=== PATIENT | male | born 1935 | race Caucasian/White ===

== ENCOUNTER 2020-06-09 18:15 | Inpatient (IN) | payer MEDICARE ==
[~2020-06-09] VITALS: Ht 177.8 cm; Wt 93.0 kg
[~2020-06-09 18:15] MED LIST: CRESTOR10 MG PO; LISINOPRIL10 MG PO; PREDNISOLONE ACE5 ML OS; VIGAMOX3 ML OS
[2020-06-09] MEDS ORDERED: DILTIAZEM HCL 5 MG/ML 5 ML VIAL IV STA (18:26)
[2020-06-09] MEDS ORDERED: DILTIAZEM HCL VIAL 5 ML ONE (18:36)
[2020-06-09] MEDS ORDERED: CEFTRIAXONE SOD 1 GM VIAL IV ONE (20:45)
[2020-06-09] MEDS ORDERED: ASPIRIN 81 MG CHEW TAB PO ONE (21:30)
[2020-06-09] MEDS ORDERED: CEFTRIAXONE SOD 1 GM VIAL IV SCH (21:30)
[2020-06-09] MEDS ORDERED: ONDANSETRON HCL INJ 2MG/ML 2ML 2 MG/ML VIAL IV PRN (21:30)
[2020-06-09] MEDS ORDERED: ACETAMINOPHEN 325 MG TAB ONE (21:57)
[2020-06-09] MEDS ORDERED: ACETAMINOPHEN 325 MG TAB PO PRN ×2 (22:00→22:30)
[2020-06-09] MEDS ORDERED: ASPIRIN 81 MG CHEW TAB ONE (22:11)
[2020-06-09] MEDS: SODIUM CHLORIDE 0.9% 1000ML 1,000 ML IV SCH (23:06)
[2020-06-09 23:47] VITALS: BP 116/68
[2020-06-10] VITALS (9 sets, daily range): BP systolic 116–136; BP diastolic 53–70
[2020-06-10 06:28] LABS: BASOPHILS # (AUTO) 0.1 (0.0-0.1); BASOPHILS % 0.6 % (0.0-1.0); EOSINOPHILS % 0.2 % (0.0-6.0); HEMATOCRIT 28.5 % (38.2-49.6); HEMOGLOBIN 9.9 g/dL (14.0-18.0); LYMPHOCYTES # (AUTO) 1.2 (1.0-3.2); LYMPHOCYTES % 5.2 % (18.0-39.1); MEAN CORPUSCULAR HEMOGLOBIN 29.3 pg (28-32); MEAN CORPUSCULAR HGB CONC 34.7 g/dL (31-35); MEAN CORPUSCULAR VOLUME 84.3 fL (81-99); MONOCYTES # (AUTO) 1.3 (0.2-0.8); MONOCYTES % 5.7 % (4.4-11.3); NEUTROPHILS # (AUTO) 17.6 (2.1-6.9); NEUTROPHILS % 79.8 % (38.7-80.0); PLATELET COUNT 112 x10e3/uL (140-360); RED BLOOD COUNT 3.38 x10e6/uL (4.3-5.7); RED CELL DISTRIBUTION WIDTH 15.2 % (11.7-14.4)
[2020-06-10 07:03] LABS: ALANINE AMINOTRANSFERASE 19 IU/L (0-55); ALBUMIN 2.9 g/dL (3.5-5.0); ALBUMIN/GLOBULIN RATIO 0.8 (0.8-2.0); ALKALINE PHOSPHATASE 51 IU/L (40-150); ANION GAP 11.7 mmol/L (8-16); BLOOD UREA NITROGEN 15 mg/dL (7-26); BUN/CREATININE RATIO 16 (6-25); CALCIUM 8.6 mg/dL (8.4-10.2); CARBON DIOXIDE 27 mmol/L (22-29); CHLORIDE 105 mmol/L (98-107); CREATINE KINASE 58 IU/L (30-200); CREATININE, SERUM 0.95 mg/dL (0.72-1.25); EST GLOMERULAR FILTRATION RATE > 60 ML/MIN (60-); GLUCOSE 119 mg/dL (74-118); POTASSIUM 3.7 mmol/L (3.5-5.1); SODIUM 140 mmol/L (136-145)
[2020-06-10 08:45] LABS: ANISOCYTOSIS SLIGHT; EOSINOPHILS % (MANUAL) 5 % (0-7); LYMPHOCYTES % (MANUAL) 11 % (19-48); MONOCYTES % (MANUAL) 5 % (3.4-9.0); NEUTROPHILS % (MANUAL) 78 % (40-74); PLATELET ESTIMATE SLIGHTLY DECREASED; RBC MORPHOLOGY COMMENT NORMAL
[2020-06-10] MEDS ORDERED: ASCORBIC ACID 500 MG TAB PO SCH (09:00)
[2020-06-10] MEDS ORDERED: ZINC SULFATE 220 MG CAP PO SCH (09:00)
[2020-06-10] MEDS ORDERED: AZITHROMYCIN 500MG/NS 250 ML 250 ML IV SCH (09:00)
[2020-06-10] MEDS ORDERED: CEFTRIAXONE SOD 2 GM/NS 100 ML 100 ML IV SCH (09:00)
[2020-06-10] MEDS: DILTIAZEM HCL 30 MG TAB PO SCH ×3 (09:40→22:18)
[2020-06-10 13:11] LABS: CREATINE KINASE 51 IU/L (30-200)
[2020-06-10] MEDS: SODIUM CHLORIDE 0.9% 1000ML 1,000 ML IV SCH ×2 (14:32→22:49)
[2020-06-10] MEDS: CEFTRIAXONE SOD 1 GM/NS 50 ML 50 ML IV SCH (18:47)
[2020-06-10 18:58] LABS: CLARITY,URINE CLOUDY (CLEAR); COLOR,URINE YELLOW (YELLOW); KETONES,URINE NEGATIVE (NEGATIVE); LEUKOCYTE ESTERASE ,URINE 1+ (NEGATIVE); NITRITE,URINE NEGATIVE (NEGATIVE); PROTEIN,URINE DIPSTICK 1+ (NEGATIVE)
[2020-06-10 18:59] LABS: BILIRUBIN,URINE NEGATIVE (NEGATIVE); URINE UROBILINOGEN 1 mg/dL (0.2 - 1)
[2020-06-10 19:11] LABS: BACTERIA,URINE MANY /HPF; EPITHELIAL CELLS,URINE FEW /LPF; RENAL EPITHELIAL CELLS,URINE MODERATE; WBC,URINE (MAN) >50 /HPF (0-5)
[2020-06-10] MEDS ORDERED: SODIUM CHLORIDE 0.9% 1000ML 1,000 ML IV SCH ×2 (19:45→21:00)
[2020-06-11] VITALS (7 sets, daily range): BP systolic 109–138; BP diastolic 56–82
[2020-06-11] MEDS: SODIUM CHLORIDE 0.9% 1000ML 1,000 ML IV SCH ×2 (00:30→01:54)
[2020-06-11 05:20] LABS: BASOPHILS # (AUTO) 0.1 (0.0-0.1); EOSINOPHILS # (AUTO) 1.3 (0.0-0.4); EOSINOPHILS % 11.7 % (0.0-6.0); HEMATOCRIT 37.4 % (38.2-49.6); HEMOGLOBIN 12.4 g/dL (14.0-18.0); LYMPHOCYTES # (AUTO) 1.3 (1.0-3.2); LYMPHOCYTES % 11.5 % (18.0-39.1); MEAN CORPUSCULAR HGB CONC 33.2 g/dL (31-35); MEAN CORPUSCULAR VOLUME 96.4 fL (81-99); MONOCYTES % 9.1 % (4.4-11.3); NEUTROPHILS # (AUTO) 7.3 (2.1-6.9); NEUTROPHILS % 66.4 % (38.7-80.0); PLATELET COUNT 189 x10e3/uL (140-360); RED BLOOD COUNT 3.88 x10e6/uL (4.3-5.7); RED CELL DISTRIBUTION WIDTH 12.6 % (11.7-14.4)
[2020-06-11] MEDS: CEFTRIAXONE SOD 1 GM/NS 50 ML 50 ML IV SCH ×2 (05:36→17:20)
[2020-06-11 05:38] LABS: ALANINE AMINOTRANSFERASE 18 IU/L (0-55); ALBUMIN 2.7 g/dL (3.5-5.0); ALBUMIN/GLOBULIN RATIO 0.8 (0.8-2.0); ALKALINE PHOSPHATASE 49 IU/L (40-150); ANION GAP 12.7 mmol/L (8-16); BLOOD UREA NITROGEN 14 mg/dL (7-26); BUN/CREATININE RATIO 15 (6-25); CALCIUM 8.5 mg/dL (8.4-10.2); CARBON DIOXIDE 23 mmol/L (22-29); CHLORIDE 107 mmol/L (98-107); CREATININE, SERUM 0.94 mg/dL (0.72-1.25); EST GLOMERULAR FILTRATION RATE > 60 ML/MIN (60-); GLUCOSE 112 mg/dL (74-118); POTASSIUM 3.7 mmol/L (3.5-5.1); SODIUM 139 mmol/L (136-145)
[2020-06-11] MEDS: DILTIAZEM HCL 30 MG TAB PO SCH (07:43)
[2020-06-11] MEDS ORDERED: MAGNESIUM HYDROXIDE 30 ML UDC PO NR (08:00)
[2020-06-11] MEDS ORDERED: ACETAMINOPHEN 325 MG TAB PO NR (08:00)
[2020-06-11] MEDS ORDERED: BISACODYL 5 MG TAB EC PO NR (08:00)
[2020-06-11] MEDS ORDERED: ONDANSETRON HCL 4 MG ORAL DISINTEGRATING TAB PO PRN (11:30)
[2020-06-12] VITALS: BP 116/52
[2020-06-12 04:00] VITALS: BP 124/66
[2020-06-12] MEDS: CEFTRIAXONE SOD 1 GM/NS 50 ML 50 ML IV SCH (05:36)
[2020-06-12 06:38] LABS: BASOPHILS # (AUTO) 0.1 (0.0-0.1); BASOPHILS % 1.2 % (0.0-1.0); EOSINOPHILS # (AUTO) 1.4 (0.0-0.4); HEMATOCRIT 36.6 % (38.2-49.6); HEMOGLOBIN 11.8 g/dL (14.0-18.0); LYMPHOCYTES # (AUTO) 1.7 (1.0-3.2); LYMPHOCYTES % 17.8 % (18.0-39.1); MEAN CORPUSCULAR HEMOGLOBIN 30.8 pg (28-32); MEAN CORPUSCULAR HGB CONC 32.2 g/dL (31-35); MEAN CORPUSCULAR VOLUME 95.6 fL (81-99); MONOCYTES # (AUTO) 1.1 (0.2-0.8); MONOCYTES % 11.7 % (4.4-11.3); NEUTROPHILS # (AUTO) 5.1 (2.1-6.9); NEUTROPHILS % 53.9 % (38.7-80.0); PLATELET COUNT 205 x10e3/uL (140-360); RED BLOOD COUNT 3.83 x10e6/uL (4.3-5.7); RED CELL DISTRIBUTION WIDTH 12.9 % (11.7-14.4)
[2020-06-12 06:59] LABS: ANION GAP 15.3 mmol/L (8-16); BLOOD UREA NITROGEN 16 mg/dL (7-26); BUN/CREATININE RATIO 18 (6-25); CALCIUM 8.3 mg/dL (8.4-10.2); CARBON DIOXIDE 23 mmol/L (22-29); CHLORIDE 107 mmol/L (98-107); CREATININE, SERUM 0.91 mg/dL (0.72-1.25); EST GLOMERULAR FILTRATION RATE > 60 ML/MIN (60-); GLUCOSE 99 mg/dL (74-118); POTASSIUM 3.3 mmol/L (3.5-5.1); SODIUM 142 mmol/L (136-145)
[2020-06-12 08:59] VITALS: BP 135/63
[2020-06-12 09:31] VITALS: BP 135/63
[2020-06-12] MEDS ORDERED: CIPRO500 MG PO (09:55)
[2020-06-12] MEDS ORDERED: POTASSIUM CHLORIDE 10MEQ EA PO ONE ×3 (10:15→12:30)
[2020-06-12 12:26] VITALS: BP 141/75
== END 2020-06-12 12:28 | disposition home or self-care (01) | DRG 872 ==
LOC: FSED 18:30 → ERHOLD 21:27 → MED/SURG2 22:35
PROVIDERS: ADMIT Internal Medicine; ATTEND Internal Medicine
DX: A41.9 Sepsis, unspecified organism (principal); I47.1 Supraventricular tachycardia; N10 Acute pyelonephritis; I11.9 Hypertensive heart disease without heart failure; E78.5 Hyperlipidemia, unspecified; E66.9 Obesity, unspecified; Z68.30 Body mass index [BMI] 30.0-30.9, adult; N18.2 Chronic kidney disease, stage 2 (mild); K59.00 Constipation, unspecified; N40.0 Benign prostatic hyperplasia without lower urinary tract symptoms; Z20.828 Contact with and (suspected) exposure to other viral communicable diseases
CPT/HCPCS: 36415; 71045; 74176; 80048; 80053; 80076; 81001; 81003; 82550; 82553; 83605; 83880; 84484; 85025; 87040; 87086; 87400; 93005; 96361; 99284; J0696; J7030; U0002

== ENCOUNTER 2021-03-07 10:01 | Emergency (ER) | payer MEDICARE ==
[~2021-03-07] VITALS: Ht 177.8 cm; Wt 99.8 kg
[~2021-03-07 10:01] MED LIST changes: +CIPRO500 MG PO
[2021-03-07] MEDS ORDERED: ACETAMINOPHEN 325 MG TAB PO ONE (10:15)
[2021-03-07] MEDS ORDERED: ACETAMINOPHEN 325 MG TAB ONE (10:27)
== END 2021-03-07 10:58 | disposition home or self-care (01) ==
LOC: FSED 10:10
DX: R50.9 Fever, unspecified (principal); B34.9 Viral infection, unspecified; E78.5 Hyperlipidemia, unspecified
CPT/HCPCS: 87400; 99283

== ENCOUNTER 2021-03-13 11:11 | Inpatient (IN) | payer MEDICARE ==
[~2021-03-13] VITALS: Ht 177.8 cm; Wt 95.3 kg
[2021-03-13] MEDS ORDERED: PIPERACILLIN/TAZOBACTAM 3.375 GM in SODIUM CHLORIDE 0.9% 50ML 50 ML IV SCH (12:00)
[2021-03-13] MEDS ORDERED: DILTIAZEM HCL 5 MG/ML 5 ML VIAL IV ONE (12:10)
[2021-03-13] MEDS ORDERED: DIGOXIN INJ 0.25 MG/ML 2 ML AMP IV ONE (12:15)
[2021-03-13] MEDS ORDERED: ACETAMINOPHEN 325 MG TAB PO ONE (12:16)
[2021-03-13] MEDS ORDERED: IOPAMIDOL 370 MG/ML 200 ML INFUS..BTL INJ ONE (12:25)
[2021-03-13] MEDS ORDERED: SODIUM CHLORIDE 0.9% 50ML 50 ML ONE (12:26)
[2021-03-13] MEDS ORDERED: DIGOXIN INJ 0.25 MG/ML 2 ML AMP ONE (12:27)
[2021-03-13] MEDS ORDERED: PIPERACILLIN/TAZOBACTAM 3.375 GM VIAL ONE (12:27)
[2021-03-13] MEDS ORDERED: SODIUM CHLORIDE 0.9% 100 ML ONE (12:28)
[2021-03-13] MEDS ORDERED: ASPIRIN 81 MG CHEW TAB PO ONE (12:30)
[2021-03-13 12:49] LABS: BASOPHILS # (AUTO) 0.1 (0.0-0.1); BASOPHILS % 0.4 % (0.0-1.0); EOSINOPHILS % 0.1 % (0.0-6.0); HEMOGLOBIN 13.5 g/dL (14.0-18.0); LYMPHOCYTES # (AUTO) 1.7 (1.0-3.2); LYMPHOCYTES % 12.7 % (18.0-39.1); MEAN CORPUSCULAR HEMOGLOBIN 30.9 pg (28-32); MEAN CORPUSCULAR HGB CONC 33.8 g/dL (31-35); MEAN CORPUSCULAR VOLUME 91.5 fL (81-99); MONOCYTES % 7.1 % (4.4-11.3); NEUTROPHILS # (AUTO) 10.7 (2.1-6.9); PLATELET COUNT 236 x10e3/uL (140-360); RED BLOOD COUNT 4.37 x10e6/uL (4.3-5.7)
[2021-03-13] MEDS ORDERED: ASPIRIN 81 MG CHEW TAB ONE (12:51)
[2021-03-13] MEDS ORDERED: ACETAMINOPHEN 325 MG TAB ONE (12:51)
[2021-03-13 13:13] LABS: ALBUMIN 2.7 g/dL (3.5-5.0); ALBUMIN/GLOBULIN RATIO 0.7 (0.8-2.0); CALCIUM 8.7 mg/dL (8.4-10.2); CREATININE, SERUM 1.16 mg/dL (0.72-1.25)
[2021-03-13 13:20] LABS: CREATINE KINASE MB 1.1 ng/mL (0-5.0)
[2021-03-13] MEDS ORDERED: DILTIAZEM HCL 5 MG/ML 5 ML VIAL IV STA (14:41)
[2021-03-13] MEDS: SODIUM CHLORIDE 0.9% 1000ML 1,000 ML IV SCH ×2 (15:14→23:27)
[2021-03-13 17:45] VITALS: BP 110/77
[2021-03-13] MEDS: CEFEPIME 1 GM in SODIUM CHLORIDE 0.9% 50ML 50 ML IV SCH (18:30)
[2021-03-13 18:49] VITALS: BP 110/77
[2021-03-13 19:19] LABS: CREATINE KINASE MB 1.8 ng/mL (0-5.0)
[2021-03-13 20:13] VITALS: BP 110/75
[2021-03-13] MEDS: Vancomycin IV 1 GM in SODIUM CHLORIDE 0.9% 250ML 250 ML IV SCH (20:22)
[2021-03-13] MEDS ORDERED: ACETAMINOPHEN 325 MG TAB PO PRN (21:45)
[2021-03-13 22:44] VITALS: BP 110/75
[2021-03-14] VITALS (8 sets, daily range): BP systolic 113–143; BP diastolic 71–89
[2021-03-14] MEDS: CEFEPIME 1 GM in SODIUM CHLORIDE 0.9% 50ML 50 ML IV SCH ×2 (05:16→17:14)
[2021-03-14 06:55] LABS: BASOPHILS # (AUTO) 0.1 (0.0-0.1); BASOPHILS % 0.7 % (0.0-1.0); EOSINOPHILS # (AUTO) 0.1 (0.0-0.4); EOSINOPHILS % 0.5 % (0.0-6.0); HEMATOCRIT 38.3 % (38.2-49.6); LYMPHOCYTES % 14.6 % (18.0-39.1); MEAN CORPUSCULAR HEMOGLOBIN 31.3 pg (28-32); MEAN CORPUSCULAR HGB CONC 33.9 g/dL (31-35); MEAN CORPUSCULAR VOLUME 92.3 fL (81-99); MONOCYTES # (AUTO) 0.7 (0.2-0.8); MONOCYTES % 5.4 % (4.4-11.3); NEUTROPHILS # (AUTO) 10.5 (2.1-6.9); NEUTROPHILS % 78.1 % (38.7-80.0); PLATELET COUNT 241 x10e3/uL (140-360); RED BLOOD COUNT 4.15 x10e6/uL (4.3-5.7); RED CELL DISTRIBUTION WIDTH 14.3 % (11.7-14.4)
[2021-03-14] MEDS: Vancomycin IV 1 GM in SODIUM CHLORIDE 0.9% 250ML 250 ML IV SCH ×2 (07:00→20:42)
[2021-03-14 07:02] LABS: CREATINE KINASE MB 1.5 ng/mL (0-5.0)
[2021-03-14 07:11] LABS: ALBUMIN 2.4 g/dL (3.5-5.0); ALBUMIN/GLOBULIN RATIO 0.7 (0.8-2.0); ANION GAP 13.9 mmol/L (8-16); CALCIUM 8.5 mg/dL (8.4-10.2); CREATININE, SERUM 1.01 mg/dL (0.72-1.25); POTASSIUM 3.9 mmol/L (3.5-5.1)
[2021-03-14] MEDS: SODIUM CHLORIDE 0.9% 1000ML 1,000 ML IV SCH ×3 (07:50→22:30)
[2021-03-14] MEDS ORDERED: METOPROLOL TARTRATE INJ 1 MG/ML VIAL IV ONE (08:15)
[2021-03-14 12:44] LABS: CREATINE KINASE MB 1.5 ng/mL (0-5.0)
[2021-03-14] MEDS: METOPROLOL TARTRATE 25 MG TAB PO SCH (17:00)
[2021-03-14] MEDS: APIXABAN 5 MG TABLET PO SCH (17:00)
[2021-03-14] MEDS ORDERED: METOPROLOL TARTRATE INJ 1 MG/ML VIAL IV STA (23:44)
[2021-03-14] MEDS ORDERED: METOPROLOL TARTRATE INJ 1 MG/ML VIAL ONE (23:58)
[2021-03-15] VITALS (8 sets, daily range): BP systolic 99–136; BP diastolic 60–86
[2021-03-15] MEDS: CEFEPIME 1 GM in SODIUM CHLORIDE 0.9% 50ML 50 ML IV SCH ×2 (05:24→17:52)
[2021-03-15] MEDS: SODIUM CHLORIDE 0.9% 1000ML 1,000 ML IV SCH ×3 (05:25→21:05)
[2021-03-15 06:40] LABS: BASOPHILS # (AUTO) 0.1 (0.0-0.1); BASOPHILS % 0.6 % (0.0-1.0); EOSINOPHILS # (AUTO) 0.3 (0.0-0.4); EOSINOPHILS % 2.2 % (0.0-6.0); HEMATOCRIT 35.2 % (38.2-49.6); HEMOGLOBIN 11.8 g/dL (14.0-18.0); LYMPHOCYTES # (AUTO) 2.1 (1.0-3.2); MEAN CORPUSCULAR HEMOGLOBIN 31.1 pg (28-32); MEAN CORPUSCULAR HGB CONC 33.5 g/dL (31-35); MEAN CORPUSCULAR VOLUME 92.6 fL (81-99); MONOCYTES # (AUTO) 0.8 (0.2-0.8); MONOCYTES % 5.4 % (4.4-11.3); NEUTROPHILS # (AUTO) 11.3 (2.1-6.9); NEUTROPHILS % 77.3 % (38.7-80.0); PLATELET COUNT 281 x10e3/uL (140-360); RED CELL DISTRIBUTION WIDTH 14.7 % (11.7-14.4)
[2021-03-15 07:03] LABS: ALBUMIN 2.2 g/dL (3.5-5.0); ALBUMIN/GLOBULIN RATIO 0.7 (0.8-2.0); ANION GAP 13.8 mmol/L (8-16); CALCIUM 8.1 mg/dL (8.4-10.2); CREATININE, SERUM 0.92 mg/dL (0.72-1.25); POTASSIUM 3.8 mmol/L (3.5-5.1)
[2021-03-15] MEDS: APIXABAN 5 MG TABLET PO SCH ×2 (11:10→17:52)
[2021-03-15] MEDS: METOPROLOL TARTRATE 25 MG TAB PO SCH ×2 (11:11→17:52)
[2021-03-15] MEDS: Vancomycin IV 1 GM in SODIUM CHLORIDE 0.9% 250ML 250 ML IV SCH ×2 (11:24→21:05)
[2021-03-15] MEDS ORDERED: ACETAMINOPHEN 325 MG TAB PO NR (12:30)
[2021-03-15] MEDS ORDERED: ACETAMINOPHEN 325 MG TAB PO PRN (12:30)
[2021-03-16 00:32] VITALS: BP 115/92
[2021-03-16 04:00] VITALS: BP 102/66
[2021-03-16] MEDS: CEFEPIME 1 GM in SODIUM CHLORIDE 0.9% 50ML 50 ML IV SCH (05:23)
[2021-03-16] MEDS: Vancomycin IV 1 GM in SODIUM CHLORIDE 0.9% 250ML 250 ML IV SCH (06:17)
[2021-03-16 06:26] LABS: BASOPHILS # (AUTO) 0.1 (0.0-0.1); BASOPHILS % 0.9 % (0.0-1.0); EOSINOPHILS # (AUTO) 0.5 (0.0-0.4); EOSINOPHILS % 3.7 % (0.0-6.0); HEMATOCRIT 36.4 % (38.2-49.6); HEMOGLOBIN 11.9 g/dL (14.0-18.0); LYMPHOCYTES # (AUTO) 2.1 (1.0-3.2); LYMPHOCYTES % 16.5 % (18.0-39.1); MEAN CORPUSCULAR HEMOGLOBIN 30.9 pg (28-32); MEAN CORPUSCULAR HGB CONC 32.7 g/dL (31-35); MEAN CORPUSCULAR VOLUME 94.5 fL (81-99); MONOCYTES # (AUTO) 0.8 (0.2-0.8); MONOCYTES % 6.3 % (4.4-11.3); NEUTROPHILS # (AUTO) 9.3 (2.1-6.9); NEUTROPHILS % 72.2 % (38.7-80.0); PLATELET COUNT 300 x10e3/uL (140-360); RED BLOOD COUNT 3.85 x10e6/uL (4.3-5.7); RED CELL DISTRIBUTION WIDTH 14.9 % (11.7-14.4)
[2021-03-16 06:59] LABS: ANION GAP 13.6 mmol/L (8-16); CALCIUM 8.4 mg/dL (8.4-10.2); CREATININE, SERUM 0.87 mg/dL (0.72-1.25); POTASSIUM 3.6 mmol/L (3.5-5.1)
[2021-03-16 08:00] VITALS: BP 117/97
[2021-03-16] MEDS: SODIUM CHLORIDE 0.9% 1000ML 1,000 ML IV SCH (08:04)
[2021-03-16] MEDS ORDERED: Vancomycin IV 1 GM VIAL ONE (08:34)
[2021-03-16] MEDS: METOPROLOL TARTRATE 25 MG TAB PO SCH (09:28)
[2021-03-16] MEDS: APIXABAN 5 MG TABLET PO SCH (09:28)
[2021-03-16] MEDS ORDERED: ELIQUIS5 MG PO (11:15)
[2021-03-16] MEDS ORDERED: LOPRESSOR25 MG PO (11:15)
[2021-03-16] MEDS ORDERED: AUGMENTIN 875-1 EACH PO (11:15)
[2021-03-16 11:28] VITALS: BP 106/70
== END 2021-03-16 12:10 | disposition home or self-care (01) | DRG 871 ==
LOC: FSED 11:36 → ERHOLD 14:28 → MED/SURG2 17:43
PROVIDERS: ADMIT Internal Medicine; ATTEND Internal Medicine
DX: A41.9 Sepsis, unspecified organism (principal); I50.33 Acute on chronic diastolic (congestive) heart failure; J15.6 Pneumonia due to other Gram-negative bacteria; I13.0 Hypertensive heart and chronic kidney disease with heart failure and stage 1 through stage 4 chronic kidney disease, or unspecified chronic kidney disease; Z79.01 Long term (current) use of anticoagulants; I48.0 Paroxysmal atrial fibrillation; Z20.822 Contact with and (suspected) exposure to COVID-19; J01.00 Acute maxillary sinusitis, unspecified; E66.9 Obesity, unspecified; Z68.31 Body mass index [BMI] 31.0-31.9, adult; I12.9 Hypertensive chronic kidney disease with stage 1 through stage 4 chronic kidney disease, or unspecified chronic kidney disease; N18.32 Chronic kidney disease, stage 3b; E78.5 Hyperlipidemia, unspecified
CPT/HCPCS: 36415; 71045; 71260; 80048; 80053; 80202; 82550; 82553; 83518; 83605; 83880; 84443; 84484; 85025; 87400; 93005; 93306; 96360; 99251; 99284; J0692; J1160; J2543; J3370; J7030; J7050; Q9967; U0002

== ENCOUNTER → 2024-01-10 | Day surgery (SDC) | payer MEDICARE ==
[2024-01-05 12:24] LABS: BASOPHILS # (AUTO) 0.1 (0.0-0.1); BASOPHILS % 1.1 % (0.0-1.0); EOSINOPHILS # (AUTO) 1.4 (0.0-0.4); EOSINOPHILS % 15.8 % (0.0-6.0); HEMATOCRIT 42.6 % (38.2-49.6); HEMOGLOBIN 13.7 g/dL (14.0-18.0); LYMPHOCYTES % 33.4 % (18.0-39.1); MEAN CORPUSCULAR HEMOGLOBIN 31.9 pg (28-32); MEAN CORPUSCULAR HGB CONC 32.2 g/dL (31-35); MEAN CORPUSCULAR VOLUME 99.3 fL (81-99); MONOCYTES # (AUTO) 0.8 (0.2-0.8); MONOCYTES % 8.3 % (4.4-11.3); NEUTROPHILS # (AUTO) 3.7 (2.1-6.9); NEUTROPHILS % 41.3 % (38.7-80.0); PLATELET COUNT 220 x10e3/uL (140-360); RED BLOOD COUNT 4.29 x10e6/uL (4.3-5.7); RED CELL DISTRIBUTION WIDTH 12.6 % (11.7-14.4); WHITE BLOOD COUNT 8.99 x10e3/uL (4.8-10.8)
[2024-01-05 12:51] LABS: ANION GAP 15.3 mmol/L (8-16); CREATININE, SERUM 1.2 mg/dL (0.72-1.25); POTASSIUM 4.3 mmol/L (3.5-5.1)
[~2024-01-10] MED LIST changes: +ASPIRIN EC81 MG PO; +AUGMENTIN 875-1 EACH PO; +BUPIVACAINE 0.25% 30ML SDV ONE; +DEXAMETHASONE SOD PHOS INJ 4 MG/ML SDV ONE; +ELIQUIS5 MG PO; +FENTANYL CITRATE/PF 100MCG/2 ML INJ ONE; +GLYCOPYRROLATE INJ 0.2 MG/ML VIAL ONE; +LACTATED RINGER'S 1,000 ML ONE; +LIDOCAINE 1% W/EPINEPHRINE 20 ML VIAL ONE; +LOPRESSOR25 MG PO; +METOPROLOL SUCC25 MG PO; +ONDANSETRON HCL INJ 2MG/ML 2ML 2 MG/ML VIAL ONE; +OSTEO BI-FLEX1 EAC2 PO; +PREVAGEN PO; +PROPOFOL IV EMULSION 10 MG/ML 20 ML VIAL ONE; +SEVOFLURANE INHAL SOLN 250 ML PEN BTL ONE; +VITAMIN B-121000 MCG PO
[2024-01-10 13:43] VITALS: BP 128/72; PULSE 62; RESP 18; O2SAT 97
== END | disposition home or self-care (01) ==
LOC: OR 08:13
PROVIDERS: ATTEND Surgery
DX: K40.90 Unilateral inguinal hernia, without obstruction or gangrene, not specified as recurrent (principal); I10 Essential (primary) hypertension; E78.5 Hyperlipidemia, unspecified; R06.02 Shortness of breath; Z01.810 Encounter for preprocedural cardiovascular examination; Z01.812 Encounter for preprocedural laboratory examination; Z01.818 Encounter for other preprocedural examination; Z79.82 Long term (current) use of aspirin; Z79.899 Other long term (current) drug therapy
CPT/HCPCS: 36415; 71046; 80048; 85025; 93005; C1781; J1100; J2405

== ENCOUNTER 2024-08-13 18:19 | Emergency (ER) | payer MEDICARE ==
[~2024-08-13] VITALS: Ht 177.8 cm; Wt 97.6 kg
[~2024-08-13 18:19] MED LIST changes: -BUPIVACAINE 0.25% 30ML SDV ONE; -DEXAMETHASONE SOD PHOS INJ 4 MG/ML SDV ONE; -FENTANYL CITRATE/PF 100MCG/2 ML INJ ONE; -GLYCOPYRROLATE INJ 0.2 MG/ML VIAL ONE; -LACTATED RINGER'S 1,000 ML ONE; -LIDOCAINE 1% W/EPINEPHRINE 20 ML VIAL ONE; -ONDANSETRON HCL INJ 2MG/ML 2ML 2 MG/ML VIAL ONE; -PROPOFOL IV EMULSION 10 MG/ML 20 ML VIAL ONE; -SEVOFLURANE INHAL SOLN 250 ML PEN BTL ONE
[2024-08-13 18:25] VITALS: PULSE 86; RESP 18; O2SAT 96
[2024-08-13] MEDS ORDERED: ELIQUIS2.5 MG PO (18:42)
[2024-08-13] MEDS ORDERED: KEFLEX125 MG/5 M PO (18:45)
[2024-08-13 18:50] VITALS: TEMP 98.9
== END 2024-08-13 18:50 | disposition home or self-care (01) ==
LOC: FSED 18:25
DX: R50.9 Fever, unspecified (principal); N39.0 Urinary tract infection, site not specified; R30.0 Dysuria; I48.91 Unspecified atrial fibrillation; E78.5 Hyperlipidemia, unspecified
CPT/HCPCS: 81003; 99283